=== PATIENT | female | born 1970 | race Caucasian/White ===

== ENCOUNTER 2016-09-26 15:05 | Emergency (ER) | payer OTHER | END 2016-09-26 16:15 | disposition home or self-care (01) | LOC: ER 15:05 | DX: S60.212A Contusion of left wrist, initial encounter (principal); W22.8XXA Striking against or struck by other objects, initial encounter; Y92.512 Supermarket, store or market as the place of occurrence of the external cause; Y99.0 Civilian activity done for income or pay; Z98.51 Tubal ligation status | CPT/HCPCS: 73110; 99283 ==